=== PATIENT | female | born 1995 | race Caucasian/White ===

== ENCOUNTER 2019-06-07 21:33 | Emergency (ER) | payer OTHER, BC ==
[2019-06-07 21:59] VITALS: BP 139/84
--- NOTE | 2019-06-07 22:43 | EDM.PDOC ---
ED HPI GENERAL MEDICAL PROBLEM - General Chief Complaint: Lower Extremity Injury/Pain Stated Complaint: HURT RIGHT KNEE - WORKRELATED Time Seen by Provider: 06/07/19 22:21 Source of Information: Reports: Patient History Limitations: Reports: No Limitations - History of Present Illness INITIAL COMMENTS - FREE TEXT/NARRATIVE: Patient is a 24-year-old female presents ED complaining of right medial knee pain. 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 X-rays were obtained which indicated no fracture. She was diagnosed with a sprained knee was instructed to remain nonweightbearing to which the patient refused. Patient purchased a knee brace and has been working since Sunday. She states the discomfort to the right knee has grown increasingly worse with being on her feet. She has not noticed any significant swelling. She has been using ice and heat in alternating fashion along with Tylenol and ibuprofen with some relief. She has no previous history of injury to the right knee. She does not feel as if the knee is giving out or locking up. Again there is no obvious swelling or bruising present. She has a follow-up appointment with occupational med doctor this coming Sunday. Right Knee Pain Score (Numeric/FACES): 7 - Related Data Allergies Allergy/AdvReac Type Severity Reaction Status Date / Time cinnamon Allergy Anaphylactic Verified 06/06/16 20:05 Shock venom-wasp [wasp venom] Allergy Respiratory Verified 06/06/16 20:05 Depression Home Meds: Home Meds . [No Known Home Meds] 06/06/16 [History] Past Medical History - Past Health History Medical/Surgical History: Denies Medical/Surgical History Social & Family History - Tobacco Use Smoking Status *Q: Never Smoker - Caffeine Use Caffeine Use: Reports: Soda - Recreational Drug Use Recreational Drug Use: No Review of Systems - Review of Systems Review Of Systems: ROS reveals no pertinent complaints other than HPI. ED EXAM, GENERAL - Physical Exam Exam: See Below Exam Limited By: No Limitations General Appearance: Alert, WD/WN, No Apparent Distress Ears: Hearing Grossly Normal Nose: Normal Inspection Throat/Mouth: Normal Voice, No Airway Compromise Head: Atraumatic, Normocephalic Neck: Normal Inspection, Supple Respiratory/Chest: No Respiratory Distress, No Accessory Muscle Use Cardiovascular: Normal Peripheral Pulses, Regular Rate, Rhythm Peripheral Pulses: 2+: Posterior Tibial (R) Extremities: Normal Inspection, Normal Range of Motion, No Pedal Edema, Other ( Pain to the medial aspect of the right knee with palpation. Kneecap is in line freely movable with no discomfort noted. Flexion-extension of the knee voice slight discomfort noted. With provocative testing: No discomfort noted with anterior and posterior drawer testing. With valgus mild discomfort noted. Nothing noted with varus. No pain with testing for meniscus tear.) Neurological: Alert, Oriented, CN II-XII Intact, Normal Cognition, No Motor/ Sensory Deficits Psychiatric: Normal Affect, Normal Mood Skin Exam: Warm, Dry, Intact, Normal Color, No Rash Course - Vital Signs Last Recorded V/S: Last Vital Signs Temp 97.4 F 06/07/19 21:55 Pulse 77 06/07/19 21:55 Resp 25 H 06/07/19 21:55 BP 139/84 06/07/19 21:55 Pulse Ox 98 06/07/19 21:55 - Orders/Labs/Meds Orders: Active Orders 24 hr Category Date Time Status DME for Discharge [COMM] Stat Oth 06/07/19 22:37 Ordered - Re-Assessments/Exams Free Text/Narrative Re-Assessment/Exam: Patient was diagnosed with a right sprain knee. I suspect patient may have sprained the medial collateral ligament and at that worst may have torn the meniscus. 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 She was instructed to not weight-bear but due to patient's persistence she needs to go to work she was allowed to return light duty. With that being said for patient's symptoms to improve she'll need to be nonweightbearing. I discussed this with the patient and she agrees. Higinio wrap along with crutches have been provided. Instructions as documented. Return precautions were discussed with her as well. She had no further questions or concerns and agreed. Departure - Departure Time of Disposition: 22:42 Disposition: Home, Self-Care 01 Condition: Good Clinical Impression: MCL sprain of right knee Qualifiers: Encounter type: initial encounter Qualified Code(s): S83.411A - Sprain of medial collateral ligament of right knee, initial encounter - Discharge Information Instructions: Crutch Use, Adult, [id number], Knee Sprain, Adult, [id number] Referrals: Caio Wasserman MD [Physician] - Forms: ED Department Discharge, ED Return to Work/School Form Additional Instructions: You are to be nonweightbearing toe-touch only for balance. Elevate when able to reduce any swelling and pain. Apply ice to the affected area 3 times a day, 20 minutes in duration, do not apply ice directly on the skin. Take ibuprofen and Tylenol in alternating fashion for discomfort. Keep appointment with occupational med doctor for this coming Sunday. Call make an appointment orthopedic surgeon of your choice to be evaluated in the next 7-10 days. Return to ED if you develop any new or worsening symptoms. - My Orders Last 24 Hours: My Active Orders 06/07/19 22:37 DME for Discharge [COMM] Stat - Assessment/Plan Last 24 Hours: My Active Orders 06/07/19 22:37 DME for Discharge [COMM] Stat
== END 2019-06-07 23:01 | disposition home or self-care (01) ==
LOC: JD.ED 21:33
DX: S83.411A Sprain of medial collateral ligament of right knee, initial encounter (principal); Z91.018 Allergy to other foods; Z91.09 Other allergy status, other than to drugs and biological substances; X58.XXXA Exposure to other specified factors, initial encounter; Y99.0 Civilian activity done for income or pay
CPT/HCPCS: 99283

== ENCOUNTER 2021-10-27 08:59 | Emergency (ER) | payer OTHER, BC ==
[2021-10-27 10:26] VITALS: BP 124/77; PULSE 65
== END 2021-10-27 10:30 | disposition home or self-care (01) ==
LOC: JD.ED 08:59
DX: S16.1XXA Strain of muscle, fascia and tendon at neck level, initial encounter (principal); S80.02XA Contusion of left knee, initial encounter; Z88.0 Allergy status to penicillin; Z91.018 Allergy to other foods; Z91.038 Other insect allergy status; V53.5XXA Driver of pick-up truck or van injured in collision with car, pick-up truck or van in traffic accident, initial encounter
CPT/HCPCS: 73564-26-LT; 73564-LT; 99283; 99284-25

== ENCOUNTER 2022-02-11 12:37 | Emergency (ER) | payer BC ==
[2022-02-11] MEDS ORDERED: Iopamidol 612 MG/ML 100 ML Bottle IVPUSH ONE (13:11)
[2022-02-11] MEDS ORDERED: Sodium Chloride 0.9% 100 ML IV SCH (13:15)
[2022-02-11] MEDS: Sodium Chloride 0.9% 10 ML Syringe FLUSH ONE ×2 (13:20→13:47)
[2022-02-11 14:44] VITALS: BP 138/75; PULSE 72
== END 2022-02-11 14:40 | disposition home or self-care (01) ==
LOC: JD.ED 12:37
DX: R22.0 Localized swelling, mass and lump, head (principal); Z79.899 Other long term (current) drug therapy; Z88.0 Allergy status to penicillin; Z91.018 Allergy to other foods; Z91.038 Other insect allergy status
CPT/HCPCS: 36415; 70487; 80048; 85025; 99284; J3490; Q9967

== ENCOUNTER 2022-07-13 11:16 | Emergency (ER) | payer BC ==
[2022-07-19 21:26] VITALS: BP 130/80; PULSE 87
== END 2022-07-13 13:10 | disposition home or self-care (01) ==
LOC: JD.ED 11:16
DX: F32.A Depression, unspecified (principal)
CPT/HCPCS: 99283; 99284

== ENCOUNTER 2022-08-30 11:22 | Emergency (ER) | payer BC ==
[2022-08-30] MEDS ORDERED: Alum Hydrox/Mag Hydrox/Simeth 30 ML, Lidocaine 2% 15 ML PO ONE ×2 (11:44)
[2022-08-30] MEDS ORDERED: Sodium Chloride 0.9% 10 ML Syringe FLUSH PRN (11:44)
[2022-08-30] MEDS ORDERED: Pantoprazole 40 MG Vial IVPUSH ONE (11:44)
[2022-08-30 11:52] VITALS: BP 119/93; PULSE 74
[2022-08-30] MEDS ORDERED: Sucralfate Suspension 1 GM/10 ML Cup PO ONE (13:37)
[2022-08-30] MEDS ORDERED: Hyoscyamine 0.125 MG Tab.SL SL ONE (13:46)
== END 2022-08-30 19:40 | disposition home or self-care (01) ==
LOC: JD.ED 11:22
DX: R10.13 Epigastric pain (principal); F41.9 Anxiety disorder, unspecified; F32.A Depression, unspecified; Z79.899 Other long term (current) drug therapy; Z88.0 Allergy status to penicillin; Z88.1 Allergy status to other antibiotic agents; Z91.038 Other insect allergy status
CPT/HCPCS: 36415; 76705; 80053; 83690; 83735; 84484; 85025; 93005; 96374; 99284; A9270; C9113; J3490

== ENCOUNTER 2022-10-18 12:37 | Emergency (ER) | payer BC ==
[2022-10-18] MEDS ORDERED: diphenhydrAMINE 50 MG/ML SDV IVPUSH ONE (14:24)
[2022-10-18] MEDS ORDERED: Ketorolac 30 MG/ML SDV IVPUSH ONE (14:24)
[2022-10-18] MEDS ORDERED: Sodium Chloride 0.9% 10 ML Syringe FLUSH PRN (14:24)
[2022-10-18] MEDS ORDERED: Ondansetron 4 MG/2 ML SDV IVPUSH ONE (14:24)
[2022-10-18] MEDS ORDERED: Sodium Chloride 0.9% 1,000 ML IV STA (14:24)
[2022-10-18] MEDS ORDERED: Alum Hydrox/Mag Hydrox/Simeth 30 ML, Lidocaine 2% 15 ML PO ONE ×2 (15:41)
[2022-10-18 16:07] LABS: CORONAVIRUS COVID-19 NAA NEGATIVE (NEGATIVE)
[2022-10-18 17:15] VITALS: BP 109/51; PULSE 89
== END 2022-10-18 17:14 | disposition home or self-care (01) ==
LOC: JD.ED 12:37
DX: R42 Dizziness and giddiness (principal); T43.225A Adverse effect of selective serotonin reuptake inhibitors, initial encounter; K21.9 Gastro-esophageal reflux disease without esophagitis; G44.89 Other headache syndrome; Z88.0 Allergy status to penicillin; Z91.018 Allergy to other foods; Z91.038 Other insect allergy status; Z20.822 Contact with and (suspected) exposure to COVID-19
CPT/HCPCS: 0241U; 36415; 70450; 70450-26; 71046; 71046-26; 80053; 80306; 81001; 81025; 83735; 84443; 84484; 85025; 85379; 93005; 96361; 96374; 96375; 99284-25; A9270-GY; J1200; J1885; J2405; J3490; J7030

== ENCOUNTER 2023-05-30 14:50 | Emergency (ER) | payer OTHER, BC ==
[2023-05-30] MEDS ORDERED: Ketorolac 60 MG/2 ML SDV IM ONE (16:43)
[2023-05-30 18:21] VITALS: BP 138/76; PULSE 78
== END 2023-05-30 17:54 | disposition home or self-care (01) ==
LOC: JD.ED 14:50
DX: S09.90XA Unspecified injury of head, initial encounter (principal); Z88.0 Allergy status to penicillin; Z91.030 Bee allergy status; W22.8XXA Striking against or struck by other objects, initial encounter
CPT/HCPCS: 70450; 96372; 99284; J1885; 99283

== ENCOUNTER 2024-01-26 23:45 | Emergency (ER) | payer BC ==
[2024-01-27 00:30] LABS: BASOPHILS PERCENT AUTO 0.7 % (0.0-1.0); EOSINOPHILS ABSOLUTE AUTO 0.3 K/mm3 (0.0-0.4); EOSINOPHILS PERCENT AUTO 4.8 % (0.0-6.0); HEMOGLOBIN 12.7 gm/dl (12.0-16.0); LYMPHOCYTES ABSOLUTE AUTO 2.2 K/mm3 (1.0-4.8); LYMPHOCYTES PERCENT AUTO 39.6 % (24.0-44.0); MEAN CORPUSCULAR HEMOGLOBIN 30.5 pg (28.0-32.0); MEAN CORPUSCULAR HGB CONC 33.4 g/dl (32.0-36.0); MEAN CORPUSCULAR VOLUME 91.1 fl (83.0-99.0); MONOCYTES ABSOLUTE AUTO 0.4 K/mm3 (0.0-0.8); MONOCYTES PERCENT AUTO 6.8 % (0.0-8.0); NEUTROPHILS ABSOLUTE AUTO 2.7 K/mm3 (1.8-7.7); NEUTROPHILS PERCENT AUTO 48.1 % (41.0-71.0); PLATELET COUNT,PLT 258 K/mm3 (150-400); RED BLOOD CELL COUNT 4.17 M/mm3 (4.10-5.30); WHITE BLOOD CELL COUNT,WBC 5.61 K/mm3 (3.9-11.3)
[2024-01-27 00:54] LABS: PROTHROMBIN TIME 9.8 SECONDS (9.7-12.0)
[2024-01-27 00:55] LABS: PTT,PARTIAL THROMBOPLSTIN TIME 26.2 SECONDS (21.7-31.4)
[2024-01-27 00:56] LABS: A/G RATIO 0.9 (1-2); ALBUMIN 3.5 g/dl (3.4-5.0); ANION GAP 14.8 (5-15); BILIRUBIN TOTAL 0.2 mg/dL (0.2-1.0); BUN/CREATININE RATIO 11.4 (14-18); CALCIUM 8.9 mg/dL (8.5-10.1); CREATININE 0.7 mg/dL (0.55-1.02); EST CRCL DRUG DOSING (CG) 86.71 mL/min; POTASSIUM,K 3.8 mEq/L (3.5-5.1); PROTEIN TOTAL,TP 7.3 g/dl (6.4-8.2)
[2024-01-27 00:58] LABS: INR < 0.93
[2024-01-27 01:18] VITALS: BP 122/76; PULSE 77
== END 2024-01-27 01:18 | disposition home or self-care (01) ==
LOC: JD.ED 23:45
DX: K64.8 Other hemorrhoids (principal); Z88.0 Allergy status to penicillin; Z88.8 Allergy status to other drugs, medicaments and biological substances; Z91.030 Bee allergy status
CPT/HCPCS: 36415; 80053; 85025; 85610; 85730; 99284

== ENCOUNTER 2024-04-02 20:49 | Emergency (ER) | payer BC ==
[2024-04-02] MEDS ORDERED: Sodium Chloride 0.9% 10 ML Syringe FLUSH PRN (21:36)
[2024-04-02] MEDS: Ketorolac 30 MG/ML SDV IVPUSH ONE (21:54)
[2024-04-02 21:57] LABS: APPEARANCE,URINE CLEAR (Clear); BILIRUBIN,URINE NEGATIVE (Negative); COLOR,URINE YELLOW (Yellow); GLUCOSE,URINE NEGATIVE (Negative); KETONES,URINE NEGATIVE (Negative); LEUKOCYTE ESTERASE,URINE NEGATIVE (Negative); NITRITE,URINE NEGATIVE (Negative); OCCULT BLOOD,URINE NEGATIVE (Negative); PH,URINE 6.5 (5.0-8.0); PROTEIN,URINE NEGATIVE (Negative); UROBILINOGEN,URINE 0.2 (0.2-1.0)
[2024-04-02 22:03] LABS: BASOPHILS PERCENT AUTO 0.5 % (0.0-1.0); EOSINOPHILS ABSOLUTE AUTO 0.1 K/mm3 (0.0-0.4); EOSINOPHILS PERCENT AUTO 1.6 % (0.0-6.0); HEMATOCRIT 37.2 % (37.0-47.0); HEMOGLOBIN 12.4 gm/dl (12.0-16.0); IMMATURE GRAN ABSOLUTE AUTO 0.02 K/mm3 (0.00-0.05); IMMATURE GRAN PERCENT AUTO 0.4 % (0.0-0.4); LYMPHOCYTES ABSOLUTE AUTO 2.6 K/mm3 (1.0-4.8); LYMPHOCYTES PERCENT AUTO 47.2 % (24.0-44.0); MEAN CORPUSCULAR HEMOGLOBIN 30.2 pg (28.0-32.0); MEAN CORPUSCULAR HGB CONC 33.3 g/dl (32.0-36.0); MEAN CORPUSCULAR VOLUME 90.5 fl (83.0-99.0); MEAN PLATELET VOLUME 9.6 fl (9.4-12.3); MONOCYTES ABSOLUTE AUTO 0.4 K/mm3 (0.0-0.8); MONOCYTES PERCENT AUTO 7.9 % (0.0-8.0); NEUTROPHILS ABSOLUTE AUTO 2.4 K/mm3 (1.8-7.7); NEUTROPHILS PERCENT AUTO 42.4 % (41.0-71.0); PLATELET COUNT,PLT 290 K/mm3 (150-400); RED BLOOD CELL COUNT 4.11 M/mm3 (4.10-5.30); WHITE BLOOD CELL COUNT,WBC 5.55 K/mm3 (3.9-11.3)
[2024-04-02 22:31] LABS: A/G RATIO 0.9 (1-2); ALBUMIN 3.4 g/dl (3.4-5.0); ANION GAP 14.3 (5-15); BILIRUBIN TOTAL 0.3 mg/dL (0.2-1.0); CALCIUM 8.7 mg/dL (8.5-10.1); CREATININE 0.7 mg/dL (0.55-1.02); EST CRCL DRUG DOSING (CG) 98.98 mL/min; MAGNESIUM 1.8 mg/dL (1.8-2.4); PROTEIN TOTAL,TP 7.4 g/dl (6.4-8.2); T4 FREE 0.8 ng/dL (0.76-1.46); TSH 3.309 uIU/mL (0.358-3.74)
[2024-04-02 22:33] LABS: POTASSIUM,K 4.3 mEq/L (3.5-5.1)
[2024-04-02 23:55] VITALS: BP 151/72; PULSE 81
== END 2024-04-02 23:54 | disposition home or self-care (01) ==
LOC: JD.ED 20:49
DX: G43.909 Migraine, unspecified, not intractable, without status migrainosus (principal); R55 Syncope and collapse; Z88.0 Allergy status to penicillin; Z91.018 Allergy to other foods; Z91.038 Other insect allergy status
CPT/HCPCS: 36415; 80053; 81003; 83735; 84439; 84443; 85025; 96374; 99284; J1885